=== PATIENT | female | born 1940 | race Caucasian/White ===

== ENCOUNTER 2023-12-26 13:48 | Inpatient (IN) | payer MEDICARE ==
[2023-12-26 19:09] VITALS: BMI 26.5
[2023-12-26] MEDS ORDERED: Ondansetron ODT 4 MG TAB PO PRN (20:51)
[2023-12-26] MEDS ORDERED: Calcium Carbonate 500 MG ChewTAB PO PRN (20:51)
[2023-12-26] MEDS: traMADol HCl 50 MG TAB PO PRN (21:27)
[2023-12-26] MEDS: Docusate 100 MG CAP PO SCH (21:27)
[2023-12-26] MEDS: Atorvastatin Calcium 10 MG TAB PO SCH (21:27)
[2023-12-26] MEDS: Metoprolol Tartrate 50 MG TAB PO SCH (21:27)
[2023-12-27] MEDS: Acetaminophen 325 MG TAB PO PRN (00:22)
[2023-12-27] MEDS: Levothyroxine Sodium 50 MCG TAB PO SCH (07:27)
[2023-12-27 09:29] LABS: INR-International Normal Ratio 1.1; PTT 27.9 sec (22.9-36.1); Prothrombin Time 13.9 sec (12.0-14.7)
[2023-12-27 12:36] VITALS: BMI 26.5
[2023-12-27] MEDS: Warfarin Sodium 7.5 MG TAB PO SCH (17:37)
[2023-12-27] MEDS: Lisinopril 5 MG TAB PO SCH (17:37)
[2023-12-28 05:25] LABS: INR-International Normal Ratio 1.1; PTT 27.1 sec (22.9-36.1)
[2023-12-29 05:18] LABS: INR-International Normal Ratio 1.3; Prothrombin Time 15.9 sec (12.0-14.7)
[2023-12-29 05:19] LABS: PTT 28.7 sec (22.9-36.1)
[2023-12-29] MEDS ORDERED: Vit A,C & E/Lutein/Minerals Tablet PO SCH (17:00)
[2023-12-30 05:29] LABS: INR-International Normal Ratio 1.2; Prothrombin Time 15.6 sec (12.0-14.7)
[2023-12-30] MEDS: CALCIUM CARBONATE PO SCH (08:21)
[2023-12-30] MEDS: CHOLECALCIFEROL PO SCH (08:21)
[2023-12-30] MEDS: Vit A,C & E/Lutein/Minerals Tablet PO SCH (08:27)
[2023-12-31 05:47] LABS: INR-International Normal Ratio 1.3; Prothrombin Time 16.3 sec (12.0-14.7)
[2023-12-31] MEDS ORDERED: WARFARIN IVPB PRN (09:40)
[2023-12-31] MEDS ORDERED: Warfarin Sodium 2.5 MG TAB PO SCH (17:00)
[2023-12-31] MEDS: Warfarin Sodium 5 MG TAB PO SCH (17:29)
[2024-01-01 06:09] LABS: INR-International Normal Ratio 1.5; Prothrombin Time 18.4 sec (12.0-14.7)
[2024-01-01] MEDS: Warfarin Sodium 5 MG TAB PO SCH (17:02)
[2024-01-02 05:47] LABS: Hematocrit 40.7 % (36.0-47.0); Hemoglobin 12.8 g/dL (12.0-16.0); Platelet Count 218 10x3/uL (130-400)
[2024-01-02 05:53] LABS: INR-International Normal Ratio 1.6; Prothrombin Time 19.5 sec (12.0-14.7)
[2024-01-02] MEDS: Ibuprofen 400 MG TAB PO SCH (15:00)
[2024-01-02] MEDS: HYDROcodone/Acetaminophen 5/325 mg Tablet PO PRN (17:01)
[2024-01-02] MEDS: Warfarin Sodium 5 MG TAB PO SCH (17:06)
[2024-01-03 13:07] LABS: INR-International Normal Ratio 2.1; Prothrombin Time 23.6 sec (12.0-14.7)
[2024-01-03] MEDS: Warfarin Sodium 1 MG TAB PO SCH (16:15)
[2024-01-03] MEDS: Warfarin Sodium 7.5 MG TAB PO SCH (16:16)
[2024-01-04 05:21] LABS: INR-International Normal Ratio 2.3; Prothrombin Time 25.4 sec (12.0-14.7)
[2024-01-05 06:03] LABS: INR-International Normal Ratio 2.5
[2024-01-05] MEDS ORDERED: Cyclobenzaprine 10 MG TAB PO PRN (11:30)
[2024-01-06 05:49] LABS: INR-International Normal Ratio 2.8; Prothrombin Time 29.4 sec (12.0-14.7)
[2024-01-07 06:10] LABS: Hematocrit 38.9 % (36.0-47.0); Hemoglobin 12.2 g/dL (12.0-16.0); Platelet Count 219 10x3/uL (130-400)
[2024-01-07 06:18] LABS: INR-International Normal Ratio 2.9; Prothrombin Time 30.3 sec (12.0-14.7)
[2024-01-07] MEDS ORDERED: Warfarin Sodium 7.5 MG TAB PO SCH (17:00)
[2024-01-08 06:14] LABS: Prothrombin Time 23.2 sec (12.0-14.7)
[2024-01-08] MEDS: Triamcinolone 0.1% Cream 15 GM TUBE TOP SCH ×2 (12:08→21:09)
[2024-01-08] MEDS: Warfarin Sodium 7.5 MG TAB PO SCH (17:36)
[2024-01-08] MEDS ORDERED: Triamcinolone 0.1% Cream 15 GM TUBE TOP SCH (21:00)
[2024-01-08] MEDS: Cyclobenzaprine 10 MG TAB PO PRN (22:15)
[2024-01-09 06:02] LABS: INR-International Normal Ratio 1.8; Prothrombin Time 20.7 sec (12.0-14.7)
[2024-01-09 07:35] VITALS: BP 130/76; TEMP 97.5
[2024-01-09] MEDS: Cephalexin 500 MG CAP PO SCH (10:38)
[2024-01-09] MEDS ORDERED: Cephalexin 500 MG CAP PO SCH (12:00)
== END 2024-01-09 12:20 | disposition home or self-care (01) | DRG 560 ==
LOC: MADMS 18:37
PROVIDERS: ADMIT Emergency Medicine; ATTEND Family Medicine
DX: S32.10XD Unspecified fracture of sacrum, subsequent encounter for fracture with routine healing (principal); L02.416 Cutaneous abscess of left lower limb; R53.81 Other malaise; S32.301D Unspecified fracture of right ilium, subsequent encounter for fracture with routine healing; W18.30XD Fall on same level, unspecified, subsequent encounter; Z88.2 Allergy status to sulfonamides; Z79.899 Other long term (current) drug therapy; Z79.01 Long term (current) use of anticoagulants; I10 Essential (primary) hypertension; E78.5 Hyperlipidemia, unspecified; E03.9 Hypothyroidism, unspecified; I48.0 Paroxysmal atrial fibrillation; Z66 Do not resuscitate
CPT/HCPCS: 36415; 85014; 85018; 85049; 85610; 85730